=== PATIENT | female | born 1955 | race African-American/Black ===

== ENCOUNTER 2017-03-14 00:54 | Inpatient (IN) | payer BC, MEDICARE ==
[2017-03-14] VITALS (27 sets, daily range): BP systolic 98–182; BP diastolic 55–99; PULSE 59–104; RESP 17–23; TEMP 98–100.3; O2SAT 91–100
[~2017-03-14] VITALS: Ht 160 cm; Wt 87.0 kg
[~2017-03-14 00:54] MED LIST: AMLO5TAB2 PO; ASPI81TA11 PO; BENZ100 PO; KEPP750T PO; METF500T PO; METO25TA6 PO; ZITHTAB PO
[2017-03-14] MEDS ORDERED: LEVE500 PO (01:29)
[2017-03-14] MEDS ORDERED: PEPT262S PO (01:29)
[2017-03-14] MEDS ORDERED: CLON1TAB PO (01:29)
[2017-03-14] MEDS ORDERED: SODIUM CHLORIDE 0.9% FLUSH 10 ML FLUSH IVF PRN ×2 (01:30→02:45)
[2017-03-14 01:40] LABS: AUTOMATED NEUTROPHIL # 5.3 TH/MM3 (1.8-7.7); BASOPHIL # 0.1 TH/MM3 (0-0.2); BASOPHIL % 0.6 % (0.0-2.0); EOSINOPHIL # 0.4 TH/MM3 (0-0.4); HEMATOCRIT 41.8 % (35.0-46.0); LYMPH % 31.1 % (9.0-44.0); MEAN CELL VOLUME 81.1 FL (80.0-100.0); MEAN CORPUSCULAR HEMOGLOBIN 25.9 PG (27.0-34.0); MONO % 9.8 % (0.0-8.0); NEUT % 54.5 % (16.0-70.0); PLATELET COUNT 236 TH/MM3 (150-450); RED BLOOD COUNT 5.16 MIL/MM3 (4.00-5.30); RED CELL DISTRIBUTION WIDTH 13.6 % (11.6-17.2); WHITE BLOOD COUNT 9.7 TH/MM3 (4.0-11.0)
[2017-03-14] MEDS: SODIUM CHLOR 0.9% 1000 ML INJ 1,000 ML IV SCH ×5 (01:40→13:04)
[2017-03-14 01:41] LABS: HEMO FLAGS DIFF FINAL
[2017-03-14] MEDS: NITROGLYCERIN 0.4 MG SL 25 TABS/BTL SL PRN ×3 (01:41→01:52)
[2017-03-14 01:46] LABS: POTASSIUM 3.7 MEQ/L (3.5-5.1)
[2017-03-14 01:49] LABS: BICARBONATE 28.4 MEQ/L (21.0-32.0); MAGNESIUM 1.9 MG/DL (1.5-2.5)
[2017-03-14 01:50] LABS: APTT (PATIENT) 27.8 SEC (24.3-30.1); PROTHROMBIN TIME - PATIENT 10.7 SEC (9.8-11.6)
[2017-03-14 02:08] LABS: CKMB 23.2 NG/ML (0.5-3.6)
--- NOTE | 2017-03-14 02:08 | RADHPO ---
EXAM DATE/TIME: 03/14/2017 01:44 [place] COMPARISON: CHEST SINGLE AP, November 19, 2015, 1:29. INDICATIONS : Chest pain. MEDICAL HISTORY : None. SURGICAL HISTORY : None. ENCOUNTER: Initial ACUITY: 1 day PAIN SCORE: 7/10 LOCATION: Bilateral chest FINDINGS: A single view of the chest demonstrates the lungs to be symmetrically aerated without evidence of mas s, infiltrate or effusion. The cardiomediastinal contours are unremarkable. Osseous structures are intact. CONCLUSION: No acute disease. Abhishek Mckinney Jr., MD on March 14, 2017 at 2:06 Board Certified Radiologist. This report was verified electronically.
--- NOTE | 2017-03-14 02:13 | PD ---
HPI Chief Complaint: Chest Pain Time Seen by Provider: 02:07 Travel History International Travel<30 days: No Contact w/Intl Traveler<30days: No Traveled to known affect area: No History of Present Illness HPI 50 year-old female presents to the emergency department for complaint of chest pain times one day. Symptoms have not improved after taking a one dose of aspirin and one dose of Pepto-Bismol. Due to persistent pain patient presents now for further evaluation. Patient notes radiation of pain to left shoulder. Patient denies shortness of breath sweats nausea vomiting neck jaw back arm or abdominal pain. Patient has history of hypertension and borderline diabetes tobacco use. 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 Patient has family history of heart disease in her mother who is still living. Patient also has history of seizure disorder as well as pseudoseizure. Has been reports patient had a seizure 2 days ago but has had no seizures in the last 2 days subsequently. Patient rates her pain 9/10 in intensity. Patient is unable to identify exacerbating or alleviating factors. No prior history of chest pain. [facility] Past Medical History Narrative Medical Seizure, pseudoseizure, anxiety, hypertension, CVA, borderline diabetes, tobacco use, hysterectomy; nursing notes reviewed Anemia: Yes Anxiety: Yes Cerebrovascular Accident: Yes Diminished Hearing: No Hypertension: Yes Immunizations Current: Yes Seizures: Yes Tetanus Vaccination: Unknown Influenza Vaccination: No ?: Not : 4 Para: 4 Past Surgical History Gynecologic Surgery: Yes (HYSTERECTOMY) Hysterectomy: Yes (1998) Social History Alcohol Use: No Tobacco Use: Yes (1 ppd) Substance Use: No Allergies-Medications (Allergen,Severity, Reaction): Coded Allergies: No Known Allergies (Unverified , 03/14/17) Reported Meds & Prescriptions Reported Meds & Active Scripts Active Reported Clonazepam 1 Mg Tab 1 Mg PO DAILY Pepto-Bismol Liq (Bismuth Subsalicylate) 262 Mg/15 Ml Susp 30 Ml PO PRN Do not exceed 8 doses (240 mL or 16 tbsp) in 24 hours. Keppra (Levetiracetam) 500 Mg Tab 500 Mg PO BID Keppra (Levetiracetam) 500 Mg Tab 500 Mg PO BID Metoprolol Succinate ER 24 HR (Metoprolol Succinate) 25 Mg Tab 25 Mg PO DAILYAC Aspirin EC (Aspirin) 81 Mg Tabdr 81 Mg PO DAILY Review of Systems Except as stated in HPI: all other systems reviewed are Neg General / Constitutional: No: Fever, Chills HENT: No: Congestion Cardiovascular: Positive: Chest Pain or Discomfort, No: Diaphoresis, Edema Respiratory: No: Shortness of Breath Gastrointestinal: No: Nausea, Vomiting, Abdominal Pain Genitourinary: No: Flank Pain Musculoskeletal: No: Pain Skin: No Rash Neurologic: No: Weakness Psychiatric: Positive: Anxiety Hematologic/Lymphatic: No: Lymph Node Enlargement Physical Exam Narrative GENERAL: Well-nourished female in no acute distress no respiratory distress SKIN: Warm and dry. HEAD: Normocephalic. EYES: No scleral icterus. No injection or drainage. NECK: Supple, trachea midline. No JVD or lymphadenopathy. CARDIOVASCULAR: Regular rate and rhythm without murmurs, gallops, or rubs. RESPIRATORY: Breath sounds equal bilaterally. No accessory muscle use. GASTROINTESTINAL: Abdomen soft, non-tender, nondistended. MUSCULOSKELETAL: No cyanosis, or edema. Radial and dorsalis pedis pulses 2+ to palpation bilaterally. BACK: Nontender without obvious deformity. No CVA tenderness. Data Data Last Documented VS Vital Signs Date Time Temp Pulse Resp B/P Pulse Ox O2 Delivery O2 Flow Rate FiO2 03/14/17 02:40 88 18 162/77 100 Nasal Cannula 2 Orders Electrocardiogram (03/14/17:27) Basic Metabolic Panel (Bmp) (03/14/17:27) Ckmb (Isoenzyme) Profile (03/14/17:27) Complete Blood Count With Diff (03/14/17:27) Magnesium (Mg) (03/14/17:27) Prothrombin Time / Inr (Pt) (03/14/17:27) Act Partial Throm Time (Ptt) (03/14/17:27) Troponin I (03/14/17:27) Chest, Single Ap (03/14/17:27) Ecg Monitoring (03/14/17:27) Bilateral Bp Monitoring (03/14/17:27) Iv Access Insert/Monitor (03/14/17:27) Oximetry (03/14/17:27) Oxygen Administration (03/14/17:27) Sodium Chloride 0.9% Flush (Ns Flush) (4/22/17 01:30) Nitroglycerin Sl (Nitrostat Sl) (03/14/17 01:30) Sodium Chlor 0.9% 1000 Ml Inj (Ns 1000 M (03/14/17 01:30) CKMB (03/14/17 01:32) CKMB% (03/14/17 01:32) Ondansetron Inj (Zofran Inj) (03/14/17 02:15) Aspirin Chew (Aspirin Chew) (03/14/17 02:15) Heparin Infusion MARIO.Q1H (03/14/17 02:13) Heparin Inj (Heparin Inj) (03/14/17 02:15) Heparin Inj (Heparin Inj) (03/14/17 08:15) Heparin Inj (Heparin Inj) (03/14/17 08:15) Heparin-D5w Inj (Heparin-D5w Inj) (03/14/17 02:15) Cbc No Diff, Includes Plts (03/17/17 06:00) Act Partial Throm Time (Ptt) (03/14/17 09:13) Occult Blood (Hemoccult) Stool (03/14/17 02:13) Nitroglycerin 2% Oint (Nitroglycerin 2% (03/14/17 02:15) Sodium Chlorid 0.9% 500 Ml Inj (Ns 500 M (03/14/17 02:15) Heparin Infusion MARIO.Q1H (03/14/17 02:33) Heparin Inj (Heparin Inj) (03/14/17 08:45) Heparin Inj (Heparin Inj) (03/14/17 08:45) Heparin-D5w Inj (Heparin-D5w Inj) (03/14/17 02:45) Act Partial Throm Time (Ptt) (03/14/17 09:33) Admit Order (Ed Use Only) (03/14/17 ) ^ Saline Lock (03/14/17 02:39) Resp Oxygen Vipin C Titrat 1-4 L (03/14/17 ) Notify Dr: Other (03/14/17 02:39) Sodium Chloride 0.9% Flush (Ns Flush) (03/14/17 09:00) Sodium Chloride 0.9% Flush (Ns Flush) (03/14/17 02:45) Consult Cardiology (03/14/17 02:39) Labs Laboratory Tests Test 03/14/17 01:32 White Blood Count 9.7 TH/MM3 Red Blood Count 5.16 MIL/MM3 Hemoglobin 13.4 GM/DL Hematocrit 41.8 % Mean Corpuscular Volume 81.1 FL Mean Corpuscular Hemoglobin 25.9 PG Mean Corpuscular Hemoglobin 32.0 % Concent Red Cell Distribution Width 13.6 % Platelet Count 236 TH/MM3 Mean Platelet Volume 10.7 FL Neutrophils (%) (Auto) 54.5 % Lymphocytes (%) (Auto) 31.1 % Monocytes (%) (Auto) 9.8 % Eosinophils (%) (Auto) 4.0 % Basophils (%) (Auto) 0.6 % Neutrophils # (Auto) 5.3 TH/MM3 Lymphocytes # (Auto) 3.0 TH/MM3 Monocytes # (Auto) 0.9 TH/MM3 Eosinophils # (Auto) 0.4 TH/MM3 Basophils # (Auto) 0.1 TH/MM3 CBC Comment DIFF FINAL Differential Comment Prothrombin Time 10.7 SEC Prothromb Time International 1.0 RATIO Ratio Activated Partial 27.8 SEC Thromboplast Time Sodium Level 141 MEQ/L Potassium Level 3.7 MEQ/L Chloride Level 107 MEQ/L Carbon Dioxide Level 28.4 MEQ/L Anion Gap 6 MEQ/L Blood Urea Nitrogen 11 MG/DL Creatinine 0.85 MG/DL Estimat Glomerular Filtration 82 ML/MIN Rate Random Glucose 103 MG/DL Calcium Level 8.8 MG/DL Magnesium Level 1.9 MG/DL Total Creatine Kinase 309 U/L Creatine Kinase MB 23.2 NG/ML Creatine Kinase MB % 7.5 % Troponin I 4.47 NG/ML MDM Medical Decision Making Medical Screen Exam Complete: Yes Emergency Medical Condition: Yes Medical Record Reviewed: Yes Interpretation(s) EKG: Normal sinus rhythm rate [address] elevation or injury pattern change noted Last Impressions Chest X-Ray 03/14/17 0127 Signed Impressions: Service Date/Time: Tuesday, March 14, 2017 01:44 - CONCLUSION: No acute disease. Abhishek Mckinney Jr., MD CBC & BMP Diagram 03/14/17 01:32 Vital Signs Date Time Temp Pulse Resp B/P Pulse Ox O2 Delivery O2 Flow Rate FiO2 03/14/17 02:40 88 18 162/77 100 Nasal Cannula 2 03/14/17 02:20 99 Nasal Cannula 2.00 03/14/17 02:18 79 18 155/59 Nasal Cannula 2 03/14/17 02:00 80 18 128/69 100 Nasal Cannula 2 03/14/17 01:57 98/55 03/14/17 01:57 17 03/14/17 01:52 59 18 126/64 97 Room Air 03/14/17 01:45 88 149/77 03/14/17 01:38 84 133/90 142/79 03/14/17 01:10 22 Troponin I: 4.47, elevated; CK total: 309, elevated; MB percent: 7.5%, elevated Differential Diagnosis Chest pain, ACS, myocardial infarction, aortic dissection, atypical biliary colic, musculoskeletal pain Narrative Course Patient placed on energy assistant IV access obtained EKG performed which is sinus rhythm rate [address] elevation or injury pattern change noted; patient complains of chest pain 9/10 in intensity administered sublingual nitroglycerin along with aspirin patient reports she take an aspirin pressure to the emergency department. Maintenance IV fluids at 100 cc per hour at bedside Patient with hypotensive episode related to similar nitroglycerin with nausea; patient oncology navigator Zofran 4 mg IV and a bolus of normal saline 300 cc Patient's pain 2/10 intensity after one sublingual nitroglycerin shoulder pain is 0/10 in intensity patient denies any shortness of breath Lab call identifying patient elevated troponin I 4.47 At 2:10 AM patient and spouse informed that cardiac enzyme is elevated troponin I is elevated CK-MB percent is elevated consistent with myocardial infarction without ST segment elevation. Spouse identifies that patient's regional branch manager is Dr. Delong and he is not sure why the patient is followed by her regional branch manager other than she has a heart murmur and has not seen her recently. Patient does have history again of tobacco use hypertension and borderline diabetes but denies abnormal cholesterol. Patient has family history of cardiac disease that is not premature onset. Patient's had no bruising or bleeding. Patient did take aspirin prior to arrival to the emergency department. Patient with increase in pain from 2/10-4/10 therefore changed Nitropaste to nitroglycerin infusion At 4:25 pain has increased on nitroglycerin and repeat EKG performed for pain 8/ 10 in intensity which reveals no acute ST elevation or injury pattern or ectopy ; patient given additional dose of morphine and nitroglycerin infusion increased to 40 mics per minute. No nausea no vomiting no referred pain pain as retrosternal. Also patient's heart rate remains 90 with Toprol 5 mg IV administered. Patient reporting improvement with decreasing pain. Critical Care Narrative Aggregate critical care time was 45 minutes. Time to perform other separately billable procedures was not included in the critical care time. My time did not include minutes spent treating any other patients simultaneously or on activities that did not directly contribute to the patient's treatment. The services I provided to this patient were to treat and/or prevent clinically significant deterioration that could result in: Arrhythmia, cardiac shock, cardiac arrest, I provided critical care services requiring my management, as noted below: Chart data review, documentation time, medication orders and management, vital sign assessments/reviewing monitor data, ordering and reviewing lab tests, ordering and interpreting/reviewing x-rays and diagnostic studies, care of the patient and discussion of the patient with the admitting physicians. Physician Communication Physician Communication call placed to regional branch manager --Dr Ponce for Dr Delong; call placed to [facility] Dr Montanez for admission to [facility]; call placed to regional branch manager --notified recurrent increasing pain aware no beds and going ED to ED to get to [facility] --regional branch manager Dr Ponce wants to be notified upon patient arrival to [facility] ED if chest pain to take to laborer electroplating but not directly to laborer electroplating from [facility] ED to laborer electroplating; ED MD Dr Ponce notified of patient and cardiologists request Diagnosis Primary Impression: Non-ST elevated myocardial infarction Additional Impression: Seizure disorder Admitting Information Admitting Physician Requests: Admit Sangeeta Simmons MD Mar 14, 2017 02:13
[2017-03-14] MEDS ORDERED: SODIUM CHLORID 0.9% 500 ML INJ 500 ML IV ONE (02:15)
[2017-03-14] MEDS ORDERED: ONDANSETRON HCL 4 MG/2 ML VIAL IV PUSH ONE (02:15)
[2017-03-14] MEDS ORDERED: HEPARIN SODIUM - IV 10,000 UNITS/10 ML VIAL IV ONE (02:15)
[2017-03-14] MEDS ORDERED: NITROGLYCERIN 2% OINT 1 GM PACKET TOPICAL ONE (02:15)
[2017-03-14] MEDS ORDERED: ASPIRIN 81 MG CHEW TAB CHEW ONE (02:15)
[2017-03-14] MEDS ORDERED: HEPARIN-D5W INJ 250 ML IV SCH ×2 (02:15→02:45)
[2017-03-14] MEDS ORDERED: ACETAMINOPHEN/HYDROcodone 325 MG/5 MG TAB PO PRN (02:45)
[2017-03-14] MEDS ORDERED: BISACODYL 10 MG SUPP RECTAL PRN (02:45)
[2017-03-14] MEDS ORDERED: ONDANSETRON HCL 4 MG/2 ML VIAL IVP PRN (02:45)
[2017-03-14] MEDS ORDERED: SODIUM CHLORIDE 0.9% FLUSH 10 ML FLUSH IV FLUSH PRN (02:45)
[2017-03-14] MEDS ORDERED: NITROGLYCERIN 2% OINT 1 GM PACKET TOPICAL PRN (02:45)
[2017-03-14] MEDS ORDERED: MISCELLANEOUS NURSING INFORMATION XX SCH (03:15)
[2017-03-14] MEDS ORDERED: CHLORHEXIDINE GLUCONATE 2 % 1 PACK (2 CLOTHS) TOP PRN (03:15)
[2017-03-14] MEDS ORDERED: MORPHINE SULFATE 4 MG/ML INJ IV PUSH ONE ×2 (03:30→04:30)
[2017-03-14] MEDS ORDERED: NITROGLYCERIN-DEXTROSE INJ 250 ML IV SCH (03:30)
[2017-03-14] MEDS ORDERED: CHLORHEXIDINE GLUCONATE 2 % 1 PACK (2 CLOTHS) TOP SCH (04:00)
[2017-03-14] MEDS ORDERED: METOPROLOL TARTRATE 5 MG/5 ML VIAL IV PUSH ONE (04:30)
[2017-03-14] MEDS ORDERED: HYDROmorphone HCL PF 1 MG/ML VIAL IV PUSH ONE (05:00)
[2017-03-14] MEDS: MORPHINE SULFATE 4 MG/ML INJ IV PRN ×2 (06:50→13:33)
[2017-03-14] MEDS ORDERED: SODIUM CHLOR 0.9% 1000 ML INJ 1,000 ML IV SCH (07:57)
[2017-03-14] MEDS ORDERED: METOPROLOL SUCCINATE 25 MG EXTENDED RELEASE TAB PO SCH (08:00)
[2017-03-14] MEDS ORDERED: HEPARIN SODIUM - IV 10,000 UNITS/10 ML VIAL IV PRN ×4 (08:15→08:45)
[2017-03-14] MEDS ORDERED: HEPARIN-NS/PF INJ 500 ML ONE (08:30)
[2017-03-14] MEDS ORDERED: VERAPAMIL HCL 5 MG/2 ML VIAL ONE ×2 (08:35→09:33)
[2017-03-14] MEDS ORDERED: HEPARIN SODIUM - IV 10,000 UNITS/10 ML VIAL ONE (08:35)
[2017-03-14] MEDS ORDERED: MIDAZOLAM HCL 2 MG/2 ML VIAL ONE (08:54)
[2017-03-14] MEDS ORDERED: SODIUM CHLORIDE 0.9% FLUSH 10 ML FLUSH IV FLUSH SCH (09:00)
[2017-03-14] MEDS: SODIUM CHLORIDE 0.9% FLUSH 10 ML FLUSH IV FLUSH SCH ×2 (09:00→21:02)
[2017-03-14] MEDS: clonazePAM 1 MG TAB PO SCH (09:00)
[2017-03-14] MEDS ORDERED: IOHEXOL 350 MG/ML 100 ML BTL (for Cath Lab) OTHER ONE (09:45)
[2017-03-14] MEDS ORDERED: MISC INFORMATION XX ONE (10:00)
--- NOTE | 2017-03-14 11:02 | MB ---
cc: GREGORIO WADE M.D. DATE OF CONSULTATION: 03/14/2017 REASON FOR CONSULTATION: Evaluation of chest pain and elevated troponin. HISTORY OF PRESENT ILLNESS: Mrs. Toscano is a 50-year-old -Maced[place] female transferred from [facility] to [facility] with an acute non STEMI. She has had no prior history of coronary disease, her said she had a heart catheterization. The catheterization was done 15 years ago up in [place] and apparently she had no blockage. The patient has a history of hypertension, she smokes, Her mother has hypertension. She apparently had a previous transient ischemic attack before. Her major prior history is that she has had prior seizure or pseudoseizures, this has been worked up at other hospitals. There is not alot of hospital records here. She sees a doctor in [place] named Dr. Gama. The patient describes having chest pain a couple of days ago and then last night unrelenting chest pain described as a substernal chest pressure with radiation to left shoulder is ongoing. She is now here in the ER at [facility] and discomfort in her chest is ongoing. I have now called a STEMI alert and am waiting for the team to come in. PAST MEDICAL HISTORY: 1. Includes pseudoseizure 2. anxiety 3. hypertension 4. previous Transient ischemic attack. 5. Borderline diabetes. 6. Smoker. 7. Status post hysterectomy. PAST SURGICAL HISTORY Notable for previous hysterectomy. SOCIAL HISTORY She is . Smokes one-pack a day. No alcohol use. ALLERGIES None. MEDICATIONS PRIOR TO ADMISSION Include 1. Clonazepam 1 mg daily 2. Pepto-Bismol 3. Keppra 500 mg p.o. twice a day. 4. Metoprolol succinate 25 mg daily. 5. Aspirin 81 mg daily. REVIEW OF SYSTEMS No bleeding. Her remaining review of systems negative. PHYSICAL EXAMINATION: IN GENERAL: The physical exam reveals an obese pleasant -Macedonian female. She appears anxious. He makes periodic clonic movements, leg spasms but is alert the whole time. VITAL SIGNS: The vital signs are charted. HEAD, EYES, EARS, NOSE, AND THROAT: Exam unremarkable. NECK: The neck is negative for JVD or bruits. CHEST: The chest is clear to auscultation. CARDIOVASCULAR SYSTEM: Exam S1-S2 regular rate and rhythm and no murmurs, gallops. ABDOMEN: The abdomen is soft, nontender. EXTREMITIES: No clubbing, cyanosis or edema. RADIOLOGIC: Electrocardiogram shows sinus rhythm, there are no acute ST-T wave changes, there is a very nonspecific change inferiorly. There is a fraction of a millimeter elevation and one in aVL but nondiagnostic at this point. LABORATORY FINDINGS: Her lab work; Hematocrit is 41.8. White blood cell count is normal, platelet count is normal. CPK is 309 with a 7.5% MB fraction and troponin is elevated 4.47, creatinine 0.85. RADIOLOGIC: Chest x-ray interpreted as no acute disease. IMPRESSION 61-year-old woman smoker with hypertension presenting with an acute non-ST segment elevation MT. Her chest discomfort is ongoing. PLAN For emergency cath, possible intervention cath maybe difficult because of her inability to laid still, she makes these periodic jerking motions. I plan to go radial rather than femoral to reduce risk of bleeding risks were explained to the patient and includes trocar attack, bleeding, etc. informed consents been obtained. I have spoken to the , I have also have received a phone call from the daughter who is apparently an TECHNICAL MAINTENANCE TECHNICIAN physician as well and I explained the situation to her as well. Further therapy be determined. MD ISAIAH Castillo/levi /8:04 AM /10:28 AM
--- NOTE | 2017-03-14 11:22 | MA ---
cc: GREGORIO WADE M.D. DATE: 03/14/2017 PROCEDURE PERFORMED: 1. Right radial artery access. 2. Coronary angiography. 3. Left heart catheterization. 4. Left ventriculography. 5. Coronary angiography. BRIEF HISTORY: Fer Toscano is a 61-year-old smoker with hypertension who came into the hospital with prolonged chest discomfort and elevation of her troponin. She described it as a heaviness in her chest radiating to her left arm. DESCRIPTION OF THE PROCEDURE IN DETAIL: The patient was brought to cardiac laboratory equipment cleaner under emergency conditions. The groin and right wrist were prepped and draped IN sterile fashion. using 1% lidocaine for local anesthesia a Terumo slender sheath was inserted in the right radial artery without difficulty. A standard cocktail was administered of 2500 units heparin, 2.5 milligrams of verapamil and 20 micrograms of nitroglycerin but then tried to cannulate the left coronary artery with a left 3.5 Senia and was not successful in part because her aortic root is short. Angiography of the right coronary artery was performed using a right 5 Senia catheter. I tried a 4 Beninese left one Amplatz catheter unsuccessfully and then just a 5-Beninese left 2 Amplatz catheter and obtained selective angiograms of the left coronary artery. The catheter was removed gently without trauma to the left main. An angled pigtail catheter was then used to measure left ventricular pressure followed by left ventriculography and then a pullback. The pigtail catheter was then removed over a wire. The sheath was in the process of being removed with a Terumo band placed. There were no complications. Of note, she did have chest pain during the procedure but her coronary arteries are wide-open FINDINGS: 1. HEMODYNAMICS: Left ventricular pressure is 136/22 with an end diastolic pressure of 28. Aortic pressure is 147/80 with a mean of 111. There was no gradient during pullback from the left ventricle to the aorta. 2. LEFT VENTRICULOGRAPHY: The left ventriculography reveals a hypercontractile left ventricle. Ejection fraction appears to be about 80%. 3. CORONARY ANGIOGRAPHY: Coronary circulation is right dominant. Her right coronary artery is large, dominant and normal-appearing. Her left coronary artery shows a large normal-appearing left main. The left anterior descending artery reaches the apex and it is normal. There is no bridging or stenoses. The ramus intermediate branch is normal. The circumflex artery appears normal. CONCLUSIONS: 1. Elevated left ventricular end diastolic pressure. 2. Above normal left ventricular ejection fraction. 3. Normal coronary arteries. RECOMMENDATIONS: The explanation for elevated troponin now is unclear. Her saturation is normal and she does not have pleuritic pain. It does not look typical of pulmonary embolism. She does smoke and she is at an increased risk of coronary spasm. She was on IV nitrates at the time her cath, so cannot exclude the possibility of spasm although there is no narrowing seen on the cath and she did have chest pain during the cath. Will get a 2-D echo Doppler study, might give some consideration to a pulmonary CTA but the clinical picture does not really look like a pulmonary embolism. Further therapy to be determined. MD ISAIAH Castillo/SHRUTHI /9:51 AM /11:12 AM
--- NOTE | 2017-03-14 11:49 | EC ---
Study Study Date:03/14/2017 STUDY CONCLUSIONS SUMMARY - Left ventricle: The cavity size was normal. Wall thickness was increased in a pattern of moderate LVH. Systolic function was normal. The estimated ejection fraction was 80%, in the range of 75% to 80%. Wall motion was normal; there were no regional wall motion abnormalities. - Mitral valve: Mildly calcified annulus. If LV function is below 40, please consider prescribing an ACEI or ARB or document rationale for non-use. PROCEDURE DATA STUDY STATUS: Elective. Procedure: Transthoracic echocardiography. Image quality was good. Scanning was performed from the parasternal, apical, and subcostal acoustic windows. Study completion: The patient tolerated the procedure well. Transthoracic echocardiography. M-mode, complete 2D, complete spectral Doppler, and color Doppler. Patient status: Inpatient. CARDIAC ANATOMY LEFT VENTRICLE: The cavity size was normal. Wall thickness was increased in a pattern of moderate LVH. Systolic function was normal. The estimated ejection fraction was 80%, in the range of 75% to 80%. Wall motion was normal; there were no regional wall motion abnormalities. AORTIC VALVE: Trileaflet; normal thickness leaflets. Doppler: Transvalvular velocity was within the normal range. There was no stenosis. No regurgitation. Peak gradient: 14mm Hg (S). AORTA: Aortic root: The aortic root was normal in size. MITRAL VALVE: Mildly calcified annulus. Doppler: Transvalvular velocity was within the normal range. There was no evidence for stenosis. Trace regurgitation. Valve area by pressure half-time: 3.79cm^2. Mean gradient: 8mm Hg (D). Peak gradient: 19mm Hg (D). LEFT ATRIUM: The atrium was normal in size. RIGHT VENTRICLE: The cavity size was normal. Wall thickness was normal. PULMONIC VALVE: Doppler: Transvalvular velocity was within the normal range. There was no evidence for stenosis. Trace regurgitation. TRICUSPID VALVE: Structurally normal valve. Doppler: Transvalvular velocity was within the normal range. No regurgitation. PULMONARY ARTERY: The main pulmonary artery was normal-sized. Systolic pressure was within the normal range. RIGHT ATRIUM: The atrium was normal in size. PERICARDIUM: There was no pericardial effusion. SYSTEMIC VEINS: Inferior vena cava: The vessel was normal in size. BASIC MEASUREMENTS ADULT Normal Left ventricle LV internal dimension, ED, chordal level, *42.1 mm 43-52 PLAX LV internal dimension, ES, chordal level, 30.1 mm 23-38 PLAX Fractional shortening, chordal level, PLAX *29 % >29 LV posterior wall thickness, ED 12 mm IVS/LVPW ratio, ED 1 <1.3 Ventricular septum Septal thickness, ED 12 mm Aortic valve Leaflet separation 18 mm 15-26 Left atrium Anterior-posterior dimension 37 mm Right ventricle RV internal dimension, ED, PLAX *17.5 mm 19-38 BASIC MEASUREMENTS ADULT Normal Aortic valve Leaflet separation 18 mm 15-26 Aorta Root diameter, ED 27 mm 20-37 DOPPLER MEASUREMENTS ADULT Normal Aortic valve Peak velocity, S 187 cm/s VTI, S 51.2 cm Peak gradient, S 14 mm Hg Mitral valve Peak E-wave velocity 108 cm/s Peak A-wave velocity 138 cm/s Mean velocity, D 127 cm/s Pressure half-time 58 ms Mean gradient, D 8 mm Hg Peak gradient, D 19 mm Hg Peak E/A ratio 0.8 Valve area, pressure half-time 3.79 cm^2 Tricuspid valve Regurgitant peak velocity 136 cm/s Peak RV-RA gradient, S 7 mm Hg Maximal regurgitant velocity 136 cm/s LEGEND: Mean values are shown as u=mean value. Asterisk (*) sparrow values outside specified normal range. Prepared and signed by Alessandro So [id number]
--- NOTE | 2017-03-14 12:40 | HHI.HP ---
[facility] Erum Flynn MD Admission Diagnosis NSTEMI Diagnoses: (1) Elevated troponin Diagnosis: Principal (2) Chest pain Diagnosis: Principal Chief Complaint: chest pain Travel History International Travel<30 Days: No Contact w/Intl Traveler <30 Da: No Traveled to Known Affected Are: No History of Present Illness patient is a 61 y/o female with history of hypertension,prediabetes and seizure disorder who presented to ER with chest pain. she says that the pain started yesterday when she was walking. pain was midsternal with no radiation. it was not associated with nausea or vomiting. although she had some diaphoresis. currently the pain is minimal to mild - improved with nitro- she doesn't recall any prior chest pain in the past. she was evaluated by cardiology and underwent cardiac catheterization. Review of Systems Constitutional: COMPLAINS OF: Diaphoretic episodes, DENIES: Fever, Weight loss , Chills, Night Sweats Eyes: DENIES: Blurred vision, Diplopia, Vision loss, Double Vision Ears, nose, mouth, throat: DENIES: Tinnitus, Vertigo, Throat pain, Epistaxis Respiratory: DENIES: Apneas, Cough, Snoring, Wheezing, Hemoptysis, Sputum production, Shortness of breath Cardiovascular: COMPLAINS OF: Chest pain, DENIES: Palpitations, Syncope, Dyspnea on Exertion, PND, Lower Extremity Edema, Orthopnea, Claudication Gastrointestinal: DENIES: Abdominal pain, Black stools, Bloody stools, Constipation, Diarrhea, Nausea, Vomiting, Difficulty Swallowing, Anorexia Genitourinary: DENIES: Urinary frequency, Urgency, Hematuria, Dysuria Musculoskeletal: DENIES: Joint pain, Muscle aches, Stiffness, Joint Swelling Integumentary: DENIES: Rash Neurologic: DENIES: Abnormal gait, Headache, Localized weakness, Paresthesias, Seizures, Speech Problems, Tremor, Poor Balance Psychiatric: DENIES: Anxiety, Confusion, Mood changes, Depression, Hallucinations, Agitation, Suicidal Ideation, Homicidal Ideation, Delusions Past Family Social History Past Medical History hypertension prediabetes seizure disorder Past Surgical History hysterectomy Reported Medications Clonazepam 1 Mg Tab 1 Mg PO DAILY Pepto-Bismol Liq (Bismuth Subsalicylate) 262 Mg/15 Ml Susp 30 Ml PO PRN Do not exceed 8 doses (240 mL or 16 tbsp) in 24 hours. Keppra (Levetiracetam) 500 Mg Tab 500 Mg PO BID Keppra (Levetiracetam) 500 Mg Tab 500 Mg PO BID Metoprolol Succinate ER 24 HR (Metoprolol Succinate) 25 Mg Tab 25 Mg PO DAILYAC Aspirin EC (Aspirin) 81 Mg Tabdr 81 Mg PO DAILY Allergies: Coded Allergies: No Known Allergies (Unverified , 03/14/17) Active Ordered Medications Current Medications Sodium Chloride (NS Flush) 2 ml UNSCH PRN IVF FLUSH AFTER USING IV ACCESS; Start 03/14/17 at 01:30; Stop 03/14/17 at 02:42; Status DC Nitroglycerin 0.4 mg 0.4 mg Q5M PRN SL CHEST PAIN Last administered on 01:52; Start 03/14/17 at 01:30 Sodium Chloride (NS 1000 ml Inj) 1,000 ml @ 100 mls/hr Q10H IV Last administered on 03/14/17 02:26; Start 03/14/17 at 01:30; Stop 03/14/17 at 02:49 ; Status DC Ondansetron HCl (Zofran Inj) 4 mg ONCE ONCE IV PUSH Last administered on 02:06; Start 03/14/17 at 02:15; Stop 03/14/17 at 02:16; Status DC Aspirin (Aspirin Chew) 162 mg ONCE ONCE CHEW Last administered on 03/14/17 02 :20; Start 03/14/17 at 02:15; Stop 03/14/17 at 02:16; Status DC Heparin Sodium (Porcine) (Heparin Inj) 7,000 units ONCE ONCE IV Last administered on 03/14/17 02:23; Start 03/14/17 at 02:15; Stop 03/14/17 at 02:18 ; Status DC Heparin Sodium (Porcine) (Heparin Inj) 5,000 units UNSCH PRN IV APTT LESS THAN 25; Start 03/14/17 at 08:15; Stop 03/14/17 at 08:15; Status DC Heparin Sodium (Porcine) 2500 units 2,500 units UNSCH PRN IV APTT 25 TO 39; Start 03/14/17 at 08:15; Stop 03/14/17 at 08:15; Status DC Heparin Sodium/ Dextrose (Heparin-D5W Inj) 250 ml @ 0 mls/hr TITRATE IV ; Start 03/14/17 at 02:15; Stop 03/14/17 at 02:39; Status DC Nitroglycerin 0.5 inch 0.5 inch ONCE ONCE TOPICAL Last administered on 02:22; Start 03/14/17 at 02:15; Stop 03/14/17 at 02:18; Status DC Sodium Chloride (NS 500 ml Inj) 500 ml @ 500 mls/hr BOLUS ONCE IV Last administered on 03/14/17 02:48; Start 03/14/17 at 02:15; Stop 03/14/17 at 03:14 ; Status DC Heparin Sodium (Porcine) (Heparin Inj) 5,000 units UNSCH PRN IV APTT LESS THAN 25; Start 03/14/17 at 08:45; Stop 03/14/17 at 10:15; Status DC Heparin Sodium (Porcine) 2500 units 2,500 units UNSCH PRN IV APTT 25 TO 39; Start 03/14/17 at 08:45; Stop 03/14/17 at 10:15; Status DC Heparin Sodium/ Dextrose (Heparin-D5W Inj) 250 ml @ 0 mls/hr TITRATE IV Last administered on 03/14/17 02:56; Start 03/14/17 at 02:45; Stop 03/14/17 at 10:15 ; Status DC Sodium Chloride (NS Flush) 2 ml BID IV FLUSH ; Start 03/14/17 at 09:00; Stop at 09:00; Status DC Sodium Chloride 2 ml 2 ml UNSCH PRN IVF FLUSH AFTER USING IV ACCESS; Start at 02:45; Stop 03/14/17 at 02:49; Status DC Sodium Chloride (NS 1000 ml Inj) 1,000 ml @ 100 mls/hr Q10H IV Last administered on 03/14/17 02:58; Start 03/14/17 at 02:37 Sodium Chloride (NS Flush) 2 ml UNSCH PRN IV FLUSH FLUSH AFTER USING IV ACCESS ; Start 03/14/17 at 02:45 Sodium Chloride (NS Flush) 2 ml BID IV FLUSH ; Start 03/14/17 at 09:00 Ondansetron HCl (Zofran Inj) 4 mg Q6H PRN IVP NAUSEA OR VOMITING; Start at 02:45 Bisacodyl (Dulcolax Supp) 10 mg DAILY PRN RECTAL CONSTIPATION; Start 03/14/17 at 02:45 Acetaminophen (Tylenol) 650 mg Q6H PRN PO FEVER/PAIN SCALE 1 TO 2; Start at 02:45 Acetaminophen/ Hydrocodone Bitart ([place] 5-325 Mg) 1 tab Q4H PRN PO PAIN SCALE 3 TO 5; Start 03/14/17 at 02:45 Morphine Sulfate (Morphine Inj) 2 mg Q3H PRN IV Pain 6-10 Last administered on 03/14/17 06:50; Start 03/14/17 at 02:45 Nitroglycerin (Nitroglycerin 2% Oint) 0.5 inch Q6HR PRN TOPICAL CHEST PAIN; Start 03/14/17 at 02:45; Stop 03/14/17 at 03:29; Status DC Clonazepam (KlonoPIN) 1 mg DAILY PO ; Start 03/14/17 at 09:00 Levetriacetam (Keppra) 500 mg BID PO ; Start 03/14/17 at 09:00 Metoprolol Succinate (Toprol Xl) 25 mg DAILYAC PO ; Start 03/14/17 at 08:00 Miscellaneous Information 1 Q361D XX ; Start 03/14/17 at 03:15 Chlorhexidine Gluconate (Chlorhexidine 2% Cloth) 3 pack Taper DAILY@04 TOP ; Start 03/14/17 at 04:00; Stop 03/10/18 at 03:59 Chlorhexidine Gluconate 3 pack 3 pack UNSCH PRN TOP HYGIENIC CARE; Start at 03:15 Nitroglycerin/ Dextrose (Nitroglycerin-Dextrose Inj) 250 ml @ 0 mls/hr TITRATE IV Last administered on 03/14/17 03:58; Start 03/14/17 at 03:30 Morphine Sulfate (Morphine Inj) 2 mg ONCE ONCE IV PUSH Last administered on 03:51; Start 03/14/17 at 03:30; Stop 03/14/17 at 03:31; Status DC Morphine Sulfate (Morphine Inj) 4 mg ONCE ONCE IV PUSH Last administered on 04:24; Start 03/14/17 at 04:30; Stop 03/14/17 at 04:31; Status DC Metoprolol Tartrate (Lopressor Inj) 5 mg ONCE ONCE IV PUSH Last administered on 03/14/17 04:38; Start 03/14/17 at 04:30; Stop 03/14/17 at 04:31; Status DC Hydromorphone HCl 0.5 mg 0.5 mg ONCE ONCE IV PUSH Last administered on 05:00; Start 03/14/17 at 05:00; Stop 03/14/17 at 05:01; Status DC Sodium Chloride 1,000 ml @ 100 mls/hr Q10H IV ; Start 03/14/17 at 07:57; Stop 03/14/17 at 10:18; Status DC Heparin Sodium/ Sodium Chloride (Heparin-NS/Pf Inj) 500 ml @ As Directed STK- MED ONCE .ROUTE ; Start 03/14/17 at 08:30; Stop 03/14/17 at 08:31; Status DC Verapamil HCl (Isoptin Inj) 5 mg STK-MED ONCE .ROUTE Last administered on 08:35; Start 03/14/17 at 08:35; Stop 03/14/17 at 08:36; Status DC Heparin Sodium (Porcine) (Heparin Inj) 10,000 units STK-MED ONCE .ROUTE Last administered on 03/14/17 08:35; Start 03/14/17 at 08:35; Stop 03/14/17 at 08:36 ; Status DC Midazolam HCl (Versed Inj) 2 mg STK-MED ONCE .ROUTE Last administered on 08:54; Start 03/14/17 at 08:54; Stop 03/14/17 at 08:55; Status DC Fentanyl Citrate (fentaNYL INJ) 100 mcg STK-MED ONCE .ROUTE Last administered on 03/14/17 08:54; Start 03/14/17 at 08:54; Stop 03/14/17 at 08:55; Status DC Verapamil HCl (Isoptin Inj) 5 mg STK-MED ONCE .ROUTE ; Start 03/14/17 at 09:33; Stop 03/14/17 at 09:34; Status DC Miscellaneous Information 1 1 ONCE ONCE XX ; Start 03/14/17 at 10:00; Stop at 10:14; Status DC Sodium Chloride (NS 1000 ml Inj) 1,000 ml @ 100 mls/hr Q10H IV ; Start at 11:00 Family History heart condition in mother. Social History smokes a pack a day- doesn't drink. Physical Exam Vital Signs Vital Signs Date Time Temp Pulse Resp B/P Pulse Ox O2 Delivery O2 Flow Rate FiO2 03/14/17 08:29 97 20 147/76 97 Nasal Cannula 2 03/14/17 07:27 18 03/14/17 06:10 96 23 159/68 96 Nasal Cannula 2 03/14/17 05:30 18 03/14/17 04:54 98.0 91 18 157/86 100 Nasal Cannula 2 03/14/17 04:44 88 22 142/76 99 Nasal Cannula 2 03/14/17 04:39 92 20 161/84 97 Nasal Cannula 2 03/14/17 04:30 18 03/14/17 04:24 104 18 180/96 97 Nasal Cannula 2 03/14/17 04:16 87 18 164/93 03/14/17 04:12 93 18 182/89 03/14/17 04:06 91 18 164/85 03/14/17 04:06 91 18 164/85 03/14/17 04:03 18 03/14/17 04:01 95 18 166/97 03/14/17 03:59 18 03/14/17 03:10 90 17 161/84 99 03/14/17 02:40 88 18 162/77 100 Nasal Cannula 2 03/14/17 02:20 99 Nasal Cannula 2.00 03/14/17 02:18 79 18 155/59 Nasal Cannula 2 03/14/17 02:00 80 18 128/69 100 Nasal Cannula 2 03/14/17 01:57 98/55 03/14/17 01:57 17 03/14/17 01:52 59 18 126/64 97 Room Air 03/14/17 01:45 88 149/77 03/14/17 01:38 84 133/90 142/79 03/14/17 01:10 22 Physical Exam GENERAL: This is a well-nourished, well-developed patient, in no apparent distress. SKIN: No rashes, ecchymoses or lesions. Cool and dry. HEAD: Atraumatic. Normocephalic. No temporal or scalp tenderness. EYES: Pupils equal round and reactive. Extraocular motions intact. No scleral icterus. No injection or drainage. ENT: Nose without bleeding, purulent drainage or septal hematoma. Throat without erythema, tonsillar hypertrophy or exudate. Uvula midline. Airway patent. NECK: Trachea midline. No JVD or lymphadenopathy. Supple, nontender, no meningeal signs. CARDIOVASCULAR: Regular rate and rhythm without murmurs, gallops, or rubs. RESPIRATORY: Clear to auscultation. Breath sounds equal bilaterally. No wheezes , rales, or rhonchi. GASTROINTESTINAL: Abdomen soft, non-tender, nondistended. No hepato-splenomegaly , or palpable masses. No guarding. MUSCULOSKELETAL: Extremities without clubbing, cyanosis, or edema. No joint tenderness, effusion, or edema noted. No calf tenderness. Negative Homans sign bilaterally. NEUROLOGICAL: Awake and alert. Cranial nerves II through XII intact. Motor and sensory grossly within normal limits. Five out of 5 muscle strength in all muscle groups. Normal speech. Laboratory Laboratory Tests Test 03/14/17 01:32 White Blood Count 9.7 Red Blood Count 5.16 Hemoglobin 13.4 Hematocrit 41.8 Mean Corpuscular Volume 81.1 Mean Corpuscular Hemoglobin 25.9 Mean Corpuscular Hemoglobin 32.0 Concent Red Cell Distribution Width 13.6 Platelet Count 236 Mean Platelet Volume 10.7 Neutrophils (%) (Auto) 54.5 Lymphocytes (%) (Auto) 31.1 Monocytes (%) (Auto) 9.8 Eosinophils (%) (Auto) 4.0 Basophils (%) (Auto) 0.6 Neutrophils # (Auto) 5.3 Lymphocytes # (Auto) 3.0 Monocytes # (Auto) 0.9 Eosinophils # (Auto) 0.4 Basophils # (Auto) 0.1 CBC Comment DIFF FINAL Differential Comment Prothrombin Time 10.7 Prothromb Time International 1.0 Ratio Activated Partial 27.8 Thromboplast Time Sodium Level 141 Potassium Level 3.7 Chloride Level 107 Carbon Dioxide Level 28.4 Anion Gap 6 Blood Urea Nitrogen 11 Creatinine 0.85 Estimat Glomerular Filtration 82 Rate Random Glucose 103 Calcium Level 8.8 Magnesium Level 1.9 Total Creatine Kinase 309 Creatine Kinase MB 23.2 Creatine Kinase MB % 7.5 Troponin I 4.47 Result Diagram: 03/14/1713103/14/17131 Imaging Last Impressions Chest X-Ray 03/14/17126 Signed Impressions: Service Date/Time: Tuesday, March 14, 2017 01:44 - CONCLUSION: No acute disease. Abhishek Mckinney Jr., MD EKG; sinus rhythm with right atrial abnormality Assessment and Plan Assessment and Plan A/P - chest pain with elevated troponin- cardiology consult appreciated negative cardiac catheterization with normal coronary arteries echo with EF 75% and LVH continue BB and nitro as needed- keep on oxygen to keep O2 sat > 90% will check ABG and d-dimer- will consider V/Q scan ( patient already received contrast during heart cath)- pending the result of the studies. -hypertension/ seizure disorder; resume home meds Discussed Condition With the patient and her . RN. Physician Certification 2 Midnight Certification Type: Admission for Inpatient Services Order for Inpatient Services The services are ordered in accordance with Medicare regulations or non- Medicare payer requirements, as applicable. In the case of services not specified as inpatient-only, they are appropriately provided as inpatient services in accordance with the 2-midnight benchmark. Estimated LOS (days): 2 days is the estimated time the patient will need to remain in the hospital, assuming treatment plan goals are met and no additional complications. Post-Hospital Plan: Home Problem Qualifiers (1) Chest pain: Qualified Code: R07.9 - Chest pain, unspecified type Michael Leigh MD Mar 14, 2017 12:39
[2017-03-14] MEDS: levETIRAcetam 500 MG TAB PO SCH ×2 (12:59→20:40)
--- NOTE | 2017-03-14 13:43 | EKG ---
Date Performed: 03/14/2017 Time Performed: 01:11:24 PTAGE: 61 years EKG: Sinus rhythm . Possible right atrial abnormality Borderline ECG Compared to prior tracing no significant change DOCTOR: Wes Jeff Interpretating Date/Time 03/14/2017 13:38:19
--- NOTE | 2017-03-14 13:43 | EKG ---
Date Performed: 03/14/2017 Time Performed: 04:17:04 PTAGE: 61 years EKG: Sinus rhythm . Possible right atrial abnormality Borderline ECG Compared to prior tracing no significant change PREVIOUS TRACING : 11/19/2015 01.22 DOCTOR: Wes Jeff Interpretating Date/Time 03/14/2017 13:38:30
[2017-03-14] MEDS: METOPROLOL TARTRATE 25 MG TAB PO SCH ×2 (18:48→22:00)
[2017-03-14] MEDS: VERAPAMIL HCL 40 MG TAB PO SCH ×2 (18:48→22:00)
[2017-03-14] MEDS: ACETAMINOPHEN 325 MG TAB PO PRN (19:31)
[2017-03-15] VITALS (12 sets, daily range): BP systolic 126–150; BP diastolic 72–85; PULSE 60–82; RESP 18–20; TEMP 98.1–99.1; O2SAT 92–97
[2017-03-15] MEDS: VERAPAMIL HCL 40 MG TAB PO SCH ×2 (04:27→13:53)
[2017-03-15] MEDS: METOPROLOL TARTRATE 25 MG TAB PO SCH ×2 (04:27→13:53)
[2017-03-15] MEDS: ACETAMINOPHEN 325 MG TAB PO PRN ×2 (04:31→12:13)
[2017-03-15 06:40] LABS: AUTOMATED NEUTROPHIL # 8.2 TH/MM3 (1.8-7.7); BASOPHIL % 0.4 % (0.0-2.0); EOSINOPHIL # 0.1 TH/MM3 (0-0.4); EOSINOPHIL % 1.1 % (0.0-4.0); HEMATOCRIT 35.6 % (35.0-46.0); HEMO FLAGS DIFF FINAL; LYMPH % 19.2 % (9.0-44.0); LYMPHOCYTE # 2.4 TH/MM3 (1.0-4.8); MEAN CORPUSCULAR HEMOGLOBIN 26.4 PG (27.0-34.0); MONO % 13.1 % (0.0-8.0); NEUT % 66.2 % (16.0-70.0); PLATELET COUNT 206 TH/MM3 (150-450); RED BLOOD COUNT 4.45 MIL/MM3 (4.00-5.30); RED CELL DISTRIBUTION WIDTH 14.5 % (11.6-17.2); WHITE BLOOD COUNT 12.3 TH/MM3 (4.0-11.0)
[2017-03-15 06:47] LABS: ALT (GPT) 15 U/L (10-53); ANION GAP 7 MEQ/L (5-15); AST (GOT) 25 U/L (15-37); BICARBONATE 25.9 MEQ/L (21.0-32.0); BLOOD UREA NITROGEN 8 MG/DL (7-18); CHLORIDE 106 MEQ/L (98-107); GLOMERULAR FILTRATION RATE 82 ML/MIN (>89); POTASSIUM 3.6 MEQ/L (3.5-5.1); SODIUM (NA) 139 MEQ/L (136-145)
[2017-03-15 06:49] LABS: ALKALINE PHOSPHATASE 80 U/L (45-117); TOTAL BILIRUBIN ADULT 0.4 MG/DL (0.2-1.0)
[2017-03-15] MEDS: SODIUM CHLOR 0.9% 1000 ML INJ 1,000 ML IV SCH (07:00)
[2017-03-15] MEDS: levETIRAcetam 500 MG TAB PO SCH (08:03)
[2017-03-15] MEDS: clonazePAM 1 MG TAB PO SCH (08:03)
[2017-03-15] MEDS: SODIUM CHLORIDE 0.9% FLUSH 10 ML FLUSH IV FLUSH SCH (08:05)
--- NOTE | 2017-03-15 08:39 | HHI.PR ---
Subjective Remarks looks and feels more comfortable today. chest pain has resolved. on oxygen via N/C @ 2 lit/min. d/w the RN. Objective Vitals Vital Signs Date Time Temp Pulse Resp B/P Pulse Ox O2 Delivery O2 Flow Rate FiO2 03/15/17 08:14 92 Nasal Cannula 2.00 03/15/17 07:58 98.1 76 18 126/73 92 03/15/17 07:12 97 Nasal Cannula 2.00 03/15/17 06:00 74 03/15/17 05:00 82 03/15/17 04:00 99.0 76 20 150/72 97 03/15/17 04:00 76 03/15/17 04:00 97 Nasal Cannula 2.00 03/15/17 03:00 75 03/15/17 02:00 60 03/15/17 01:00 73 03/15/17 00:00 99.1 76 20 134/72 97 03/15/17 00:00 79 03/15/17 00:00 97 Nasal Cannula 2.00 03/14/17 23:00 79 03/14/17 22:00 83 03/14/17 21:00 81 03/14/17 20:00 Nasal Cannula 4.00 03/14/17 20:00 85 03/14/17 20:00 97 Nasal Cannula 2.00 03/14/17 20:00 100.3 65 20 154/78 95 03/14/17 19:00 95 03/14/17 16:00 98 Nasal Cannula 2.00 03/14/17 15:00 99.6 97 20 159/72 98 03/14/17 15:00 98 Nasal Cannula 2.00 03/14/17 15:00 96 03/14/17 13:00 94 Nasal Cannula 2.00 03/14/17 12:00 92 Nasal Cannula 4.00 03/14/17 11:00 92 Nasal Cannula 4.00 03/14/17 11:00 98 03/14/17 11:00 98.6 101 18 132/99 91 I/O 03/14/17 03/14/17 03/14/17 03/15/17 03/15/17 03/15/17 07:00 15:00 23:00 07:00 15:00 23:00 Intake Total 1700 ml 4658 ml 516 ml Output Total 600 ml 200 ml Balance 1700 ml 4058 ml 316 ml Intake Oral 4480 ml 480 ml IV Total 1700 ml 178 ml 36 ml Output Urine Total 600 ml 200 ml # Bowel Movements 0 0 Result Diagram: 03/15/17 0554 03/15/17 0554 Imaging Last Impressions Chest X-Ray 03/14/17 0127 Signed Impressions: Service Date/Time: Tuesday, March 14, 2017 01:44 - CONCLUSION: No acute disease. Abhishek Mckinney Jr., MD Objective Remarks GENERAL: This is a well-nourished, well-developed patient, in no apparent distress. CARDIOVASCULAR: Regular rate and regular rhythm without murmurs, gallops, or rubs. RESPIRATORY: Clear to auscultation. Breath sounds equal bilaterally. No wheezes , rales, or rhonchi. GASTROINTESTINAL: Abdomen soft, non-tender, nondistended. Normal, active bowel sounds MUSCULOSKELETAL: Extremities without clubbing, cyanosis, or edema. NEURO: Alert & Oriented x4 to person, place, time, situation. Moves all ext x4 Procedures cardiac cath. Medications and IVs Current Medications Sodium Chloride (NS Flush) 2 ml UNSCH PRN IVF FLUSH AFTER USING IV ACCESS; Start 03/14/17 at 01:30; Stop 03/14/17 at 02:42; Status DC Nitroglycerin 0.4 mg 0.4 mg Q5M PRN SL CHEST PAIN Last administered on 01:52; Start 03/14/17 at 01:30 Sodium Chloride (NS 1000 ml Inj) 1,000 ml @ 100 mls/hr Q10H IV Last administered on 03/14/17 02:26; Start 03/14/17 at 01:30; Stop 03/14/17 at 02:49 ; Status DC Ondansetron HCl (Zofran Inj) 4 mg ONCE ONCE IV PUSH Last administered on 02:06; Start 03/14/17 at 02:15; Stop 03/14/17 at 02:16; Status DC Aspirin (Aspirin Chew) 162 mg ONCE ONCE CHEW Last administered on 03/14/17 02 :20; Start 03/14/17 at 02:15; Stop 03/14/17 at 02:16; Status DC Heparin Sodium (Porcine) (Heparin Inj) 7,000 units ONCE ONCE IV Last administered on 03/14/17 02:23; Start 03/14/17 at 02:15; Stop 03/14/17 at 02:18 ; Status DC Heparin Sodium (Porcine) (Heparin Inj) 5,000 units UNSCH PRN IV APTT LESS THAN 25; Start 03/14/17 at 08:15; Stop 03/14/17 at 08:15; Status DC Heparin Sodium (Porcine) 2500 units 2,500 units UNSCH PRN IV APTT 25 TO 39; Start 03/14/17 at 08:15; Stop 03/14/17 at 08:15; Status DC Heparin Sodium/ Dextrose (Heparin-D5W Inj) 250 ml @ 0 mls/hr TITRATE IV ; Start 03/14/17 at 02:15; Stop 03/14/17 at 02:39; Status DC Nitroglycerin 0.5 inch 0.5 inch ONCE ONCE TOPICAL Last administered on 02:22; Start 03/14/17 at 02:15; Stop 03/14/17 at 02:18; Status DC Sodium Chloride (NS 500 ml Inj) 500 ml @ 500 mls/hr BOLUS ONCE IV Last administered on 03/14/17 02:48; Start 03/14/17 at 02:15; Stop 03/14/17 at 03:14 ; Status DC Heparin Sodium (Porcine) (Heparin Inj) 5,000 units UNSCH PRN IV APTT LESS THAN 25; Start 03/14/17 at 08:45; Stop 03/14/17 at 10:15; Status DC Heparin Sodium (Porcine) 2500 units 2,500 units UNSCH PRN IV APTT 25 TO 39; Start 03/14/17 at 08:45; Stop 03/14/17 at 10:15; Status DC Heparin Sodium/ Dextrose (Heparin-D5W Inj) 250 ml @ 0 mls/hr TITRATE IV Last administered on 03/14/17 02:56; Start 03/14/17 at 02:45; Stop 03/14/17 at 10:15 ; Status DC Sodium Chloride (NS Flush) 2 ml BID IV FLUSH ; Start 03/14/17 at 09:00; Stop at 09:00; Status DC Sodium Chloride 2 ml 2 ml UNSCH PRN IVF FLUSH AFTER USING IV ACCESS; Start at 02:45; Stop 03/14/17 at 02:49; Status DC Sodium Chloride (NS 1000 ml Inj) 1,000 ml @ 100 mls/hr Q10H IV Last administered on 03/14/17 02:58; Start 03/14/17 at 02:37 Sodium Chloride (NS Flush) 2 ml UNSCH PRN IV FLUSH FLUSH AFTER USING IV ACCESS ; Start 03/14/17 at 02:45 Sodium Chloride (NS Flush) 2 ml BID IV FLUSH Last administered on 03/15/17 08: 05; Start 03/14/17 at 09:00 Ondansetron HCl (Zofran Inj) 4 mg Q6H PRN IVP NAUSEA OR VOMITING; Start at 02:45 Bisacodyl (Dulcolax Supp) 10 mg DAILY PRN RECTAL CONSTIPATION; Start 03/14/17 at 02:45 Acetaminophen (Tylenol) 650 mg Q6H PRN PO FEVER/PAIN SCALE 1 TO 2 Last administered on 03/15/17 04:31; Start 03/14/17 at 02:45 Acetaminophen/ Hydrocodone Bitart ([place] 5-325 Mg) 1 tab Q4H PRN PO PAIN SCALE 3 TO 5 Last administered on 03/15/17 00:43; Start 03/14/17 at 02:45 Morphine Sulfate (Morphine Inj) 2 mg Q3H PRN IV Pain 6-10 Last administered on 03/14/17 13:33; Start 03/14/17 at 02:45 Nitroglycerin (Nitroglycerin 2% Oint) 0.5 inch Q6HR PRN TOPICAL CHEST PAIN; Start 03/14/17 at 02:45; Stop 03/14/17 at 03:29; Status DC Clonazepam (KlonoPIN) 1 mg DAILY PO ; Start 03/14/17 at 09:00 Levetriacetam (Keppra) 500 mg BID PO Last administered on 03/15/17 08:03; Start 03/14/17 at 09:00 Metoprolol Succinate (Toprol Xl) 25 mg DAILYAC PO Last administered on 12:59; Start 03/14/17 at 08:00; Stop 03/14/17 at 17:43; Status DC Miscellaneous Information 1 Q361D XX ; Start 03/14/17 at 03:15 Chlorhexidine Gluconate (Chlorhexidine 2% Cloth) 3 pack Taper DAILY@04 TOP ; Start 03/14/17 at 04:00; Stop 03/10/18 at 03:59 Chlorhexidine Gluconate 3 pack 3 pack UNSCH PRN TOP HYGIENIC CARE; Start at 03:15 Nitroglycerin/ Dextrose (Nitroglycerin-Dextrose Inj) 250 ml @ 0 mls/hr TITRATE IV Last administered on 03/14/17 03:58; Start 03/14/17 at 03:30 Morphine Sulfate (Morphine Inj) 2 mg ONCE ONCE IV PUSH Last administered on 03:51; Start 03/14/17 at 03:30; Stop 03/14/17 at 03:31; Status DC Morphine Sulfate (Morphine Inj) 4 mg ONCE ONCE IV PUSH Last administered on 04:24; Start 03/14/17 at 04:30; Stop 03/14/17 at 04:31; Status DC Metoprolol Tartrate (Lopressor Inj) 5 mg ONCE ONCE IV PUSH Last administered on 03/14/17 04:38; Start 03/14/17 at 04:30; Stop 03/14/17 at 04:31; Status DC Hydromorphone HCl 0.5 mg 0.5 mg ONCE ONCE IV PUSH Last administered on 05:00; Start 03/14/17 at 05:00; Stop 03/14/17 at 05:01; Status DC Sodium Chloride 1,000 ml @ 100 mls/hr Q10H IV ; Start 03/14/17 at 07:57; Stop 03/14/17 at 10:18; Status DC Heparin Sodium/ Sodium Chloride (Heparin-NS/Pf Inj) 500 ml @ As Directed STK- MED ONCE .ROUTE ; Start 03/14/17 at 08:30; Stop 03/14/17 at 08:31; Status DC Verapamil HCl (Isoptin Inj) 5 mg STK-MED ONCE .ROUTE Last administered on 08:35; Start 03/14/17 at 08:35; Stop 03/14/17 at 08:36; Status DC Heparin Sodium (Porcine) (Heparin Inj) 10,000 units STK-MED ONCE .ROUTE Last administered on 03/14/17 08:35; Start 03/14/17 at 08:35; Stop 03/14/17 at 08:36 ; Status DC Midazolam HCl (Versed Inj) 2 mg STK-MED ONCE .ROUTE Last administered on 08:54; Start 03/14/17 at 08:54; Stop 03/14/17 at 08:55; Status DC Fentanyl Citrate (fentaNYL INJ) 100 mcg STK-MED ONCE .ROUTE Last administered on 03/14/17 08:54; Start 03/14/17 at 08:54; Stop 03/14/17 at 08:55; Status DC Verapamil HCl (Isoptin Inj) 5 mg STK-MED ONCE .ROUTE ; Start 03/14/17 at 09:33; Stop 03/14/17 at 09:34; Status DC Miscellaneous Information 1 1 ONCE ONCE XX ; Start 03/14/17 at 10:00; Stop at 10:14; Status DC Sodium Chloride (NS 1000 ml Inj) 1,000 ml @ 100 mls/hr Q10H IV ; Start at 11:00 Metoprolol Tartrate (Lopressor) 25 mg Q8HR PO Last administered on 03/15/17 04 :27; Start 03/14/17 at 17:45 Verapamil HCl (Isoptin) 40 mg Q8HR PO Last administered on 03/15/17 04:27; Start 03/14/17 at 17:45 A/P Assessment and Plan A/P - chest pain with elevated troponin- cardiology consult appreciated negative cardiac catheterization with normal coronary arteries echo with EF 75% and LVH continue BB - Verapamil was added. d-dimer negative. will do walk test before discharge. counselled on smoking cessation. -hypertension; on BB and Verapamil -seizure disorder; resumed home meds. Discharge Planning awaiting cardiology follow-up. Michael Leigh MD Mar 15, 2017 08:39
[2017-03-15] MEDS ORDERED: RESP: ALBUTEROL 1.25 MG/3 ML NEB (PRN) NEB (08:45)
--- NOTE | 2017-03-15 11:35 | PD.CARD.PN ---
Subjective Subjective Remarks Feels fine. No chest pain or dyspnea Objective Medications Current Medications Medications (Trade) Dose Ordered Sig/Gerry Route Start Time Stop Time Status Last Admin (Nitrostat Sl) 0.4 mg Q5M PRN SL 03/14/17 01:30 03/14/17 01:52 (NS Flush) 2 ml UNSCH PRN IV FLUSH 03/14/17 02:45 (NS Flush) 2 ml BID IV FLUSH 03/14/17 09:00 03/15/17 08:05 (Zofran Inj) 4 mg Q6H PRN IVP 03/14/17 02:45 (Dulcolax Supp) 10 mg DAILY PRN RECTAL 03/14/17 02:45 (Tylenol) 650 mg Q6H PRN PO 03/14/17 02:45 03/15/17 04:31 ([place] 5-325 Mg) 1 tab Q4H PRN PO 03/14/17 02:45 03/15/17 00:43 (Morphine Inj) 2 mg Q3H PRN IV 03/14/17 02:45 03/14/17 13:33 (KlonoPIN) 1 mg DAILY PO 03/14/17 09:00 (Keppra) 500 mg BID PO 03/14/17 09:00 03/15/17 08:03 Miscellaneous Information 1 Q361D XX 03/14/17 03:15 (Chlorhexidine 2% Cloth) 3 pack Taper DAILY@04 TOP 03/14/17 04:00 03/10/18 03:59 Chlorhexidine Gluconate 3 pack 3 pack UNSCH PRN TOP 03/14/17 03:15 Nitroglycerin/ Dextrose 250 ml @ 0 mls/hr TITRATE IV 03/14/17 03:30 03/14/17 03:58 (NS 1000 ml Inj) 1,000 ml @ 100 mls/hr Q10H IV 03/14/17 11:00 (Lopressor) 25 mg Q8HR PO 03/14/17 17:45 03/15/17 04:27 (Isoptin) 40 mg Q8HR PO 03/14/17 17:45 03/15/17 04:27 Vital Signs / I&O Vital Signs Date Time Temp Pulse Resp B/P Pulse Ox O2 Delivery O2 Flow Rate FiO2 03/15/17 08:14 92 Nasal Cannula 2.00 4/23/17 07:58 98.1 76 18 126/73 92 03/15/17 07:12 97 Nasal Cannula 2.00 03/15/17 07:00 80 03/15/17 06:00 74 03/15/17 05:00 82 03/15/17 04:00 99.0 76 20 150/72 97 03/15/17 04:00 76 03/15/17 04:00 97 Nasal Cannula 2.00 03/15/17 03:00 75 03/15/17 02:00 60 03/15/17 01:00 73 03/15/17 00:00 99.1 76 20 134/72 97 03/15/17 00:00 79 03/15/17 00:00 97 Nasal Cannula 2.00 03/14/17 23:00 79 03/14/17 22:00 83 03/14/17 21:00 81 03/14/17 20:00 Nasal Cannula 4.00 03/14/17 20:00 85 03/14/17 20:00 97 Nasal Cannula 2.00 03/14/17 20:00 100.3 65 20 154/78 95 03/14/17 19:00 95 03/14/17 16:00 98 Nasal Cannula 2.00 03/14/17 15:00 99.6 97 20 159/72 98 03/14/17 15:00 98 Nasal Cannula 2.00 03/14/17 15:00 96 03/14/17 13:00 94 Nasal Cannula 2.00 03/14/17 12:00 92 Nasal Cannula 4.00 I/O 03/14/17 03/14/17 03/14/17 03/15/17 03/15/17 03/15/17 07:00 15:00 23:00 07:00 15:00 23:00 Intake Total 1700 ml 4658 ml 516 ml Output Total 600 ml 200 ml Balance 1700 ml 4058 ml 316 ml Intake Oral 4480 ml 480 ml IV Total 1700 ml 178 ml 36 ml Output Urine Total 600 ml 200 ml # Bowel Movements 0 0 Physical Exam GENERAL: Well developed, well nourished. No acute distress. HEENT: Jugular venous pressure is normal. CHEST: Lungs clear to auscultation bilaterally. Unlabored respiratory effort. CARDIAC: Regular rate and rhythm 1/6 systolic murmur. ABDOMEN: Soft, nontender, no hepatosplenomegaly. Bowel sounds present. EXTREMITIES: No clubbing, cyanosis, or edema. Right groin OK Laboratory Laboratory Tests Test 03/14/17 03/14/17 03/15/17 12:46 15:09 05:54 Troponin I 2.55 NG/ML 2.55 NG/ML Activated Partial 28.0 SEC Thromboplast Time D-Dimer Quantitative (PE/DVT) 0.34 MG/L FEU White Blood Count 12.3 TH/MM3 Red Blood Count 4.45 MIL/MM3 Hemoglobin 11.7 GM/DL Hematocrit 35.6 % Mean Corpuscular Volume 80.0 FL Mean Corpuscular Hemoglobin 26.4 PG Mean Corpuscular Hemoglobin 33.0 % Concent Red Cell Distribution Width 14.5 % Platelet Count 206 TH/MM3 Mean Platelet Volume 10.3 FL Neutrophils (%) (Auto) 66.2 % Lymphocytes (%) (Auto) 19.2 % Monocytes (%) (Auto) 13.1 % Eosinophils (%) (Auto) 1.1 % Basophils (%) (Auto) 0.4 % Neutrophils # (Auto) 8.2 TH/MM3 Lymphocytes # (Auto) 2.4 TH/MM3 Monocytes # (Auto) 1.6 TH/MM3 Eosinophils # (Auto) 0.1 TH/MM3 Basophils # (Auto) 0.0 TH/MM3 CBC Comment DIFF FINAL Differential Comment Sodium Level 139 MEQ/L Potassium Level 3.6 MEQ/L Chloride Level 106 MEQ/L Carbon Dioxide Level 25.9 MEQ/L Anion Gap 7 MEQ/L Blood Urea Nitrogen 8 MG/DL Creatinine 0.85 MG/DL Estimat Glomerular Filtration 82 ML/MIN Rate Random Glucose 118 MG/DL Calcium Level 8.6 MG/DL Total Bilirubin 0.4 MG/DL Aspartate Amino Transf 25 U/L (AST/SGOT) Alanine Aminotransferase 15 U/L (ALT/SGPT) Alkaline Phosphatase 80 U/L Total Protein 6.7 GM/DL Albumin 2.9 GM/DL Imaging Last 48 hours Impressions Chest X-Ray 03/14/17 0127 Signed Impressions: Service Date/Time: Tuesday, March 14, 2017 01:44 - CONCLUSION: No acute disease. Abhishek Mckinney Jr., MD Assessment and Plan Problem List: (1) Elevated troponin Assessment and Plan: Doubt NSTEMI. (2) Hypertrophic cardiomyopathy Assessment and Plan: Best explanation for her clinical presentation. Continue Verapamil (change to 120mg SR daily), and betablocker (metoprolol succinate 50 mg daily). Assessment and Plan OK with me to [facility]. Alessandro So MD Mar 15, 2017 11:35
[2017-03-15] MEDS ORDERED: ACETAMINOPHEN 325 MG TAB ONE (12:11)
[2017-03-15] MEDS ORDERED: METO50TA11 PO (13:22)
[2017-03-15] MEDS ORDERED: VERA120C3 PO (13:22)
--- NOTE | 2017-03-15 13:25 | HHI.DCPOC ---
Discharge Care Plan Diagnosis: (1) Hypertrophic cardiomyopathy Your Health Problems Are: Chest Pain Shortness of Breath Goals to Promote Your Health * To prevent worsening of your condition and complications * To maintain your health at the optimal level Directions to Meet Your Goals Take your medications as prescribed Follow your dietary instruction Follow activity as directed Keep your appointments as scheduled Take your immunizations and boosters as scheduled If your symptoms worsen call your PCP, if no PCP go to Urgent Care Center or Emergency Room Smoking is Dangerous to Your Health. Avoid second hand smoke Call the 24-hour hour crisis hotline for domestic abuse at Michael Leigh MD Mar 15, 2017 13:25
--- NOTE | 2017-03-15 13:26 | HHI.DS ---
Discharge Summary Admission Date Mar 14, 2017 at 02:41 Discharge Date: Mar 15, 2017 Admitting Diagnosis NSTEMI (1) Elevated troponin ICD Code: R74.8 Diagnosis: Principal (2) Chest pain ICD Code: R07.9 Diagnosis: Principal Procedures cardiac cath. Brief History - From Admission patient is a 61 y/o female with history of hypertension,prediabetes and seizure disorder who presented to ER with chest pain. she says that the pain started yesterday when she was walking. pain was midsternal with no radiation. it was not associated with nausea or vomiting. although she had some diaphoresis. currently the pain is minimal to mild - improved with nitro- she doesn't recall any prior chest pain in the past. she was evaluated by cardiology and underwent cardiac catheterization. CBC/BMP: 03/15/17 0554 03/15/17 0554 Significant Findings Laboratory Tests Test 03/14/17 03/14/17 03/14/17 03/15/17 01:32 12:46 15:09 05:54 Mean Corpuscular Hemoglobin 25.9 PG 26.4 PG (27.0-34.0) (27.0-34.0) Monocytes (%) (Auto) 9.8 % (0.0-8.0) 13.1 % (0.0-8.0) Estimat Glomerular Filtration 82 ML/MIN (>89) 82 ML/MIN (>89) Rate Total Creatine Kinase 309 U/L (26-192) Creatine Kinase MB 23.2 NG/ML (0.5-3.6) Creatine Kinase MB % 7.5 % (0.0-4.0) Troponin I 4.47 NG/ML 2.55 NG/ML 2.55 NG/ML (0.02-0.05) (0.02-0.05) (0.02-0.05) White Blood Count 12.3 TH/MM3 (4.0-11.0) Neutrophils # (Auto) 8.2 TH/MM3 (1.8-7.7) Monocytes # (Auto) 1.6 TH/MM3 (0-0.9) Random Glucose 118 MG/DL (74-106) Albumin 2.9 GM/DL (3.4-5.0) Imaging Last Impressions Chest X-Ray 03/14/17 0127 Signed Impressions: Service Date/Time: Tuesday, March 14, 2017 01:44 - CONCLUSION: No acute disease. Abhishek Mckinney Jr., MD PE at Discharge GENERAL: This is a well-nourished, well-developed patient, in no apparent distress. CARDIOVASCULAR: Regular rate and regular rhythm without murmurs, gallops, or rubs. RESPIRATORY: Clear to auscultation. Breath sounds equal bilaterally. No wheezes , rales, or rhonchi. GASTROINTESTINAL: Abdomen soft, non-tender, nondistended. Normal, active bowel sounds MUSCULOSKELETAL: Extremities without clubbing, cyanosis, or edema. NEURO: Alert & Oriented x4 to person, place, time, situation. Moves all ext x4 Hospital Course - chest pain with elevated troponin- cardiology consult appreciated negative cardiac catheterization with normal coronary arteries echo with EF 75% and LVH continue BB - Verapamil was added. d-dimer negative. will do walk test before discharge. counselled on smoking cessation. -hypertension; on BB and Verapamil -seizure disorder; resumed home meds. Pt Condition on Discharge: Good Discharge Disposition: Discharge Home Discharge Time: <= 30 minutes Discharge Instructions DIET: Follow Instructions for: Heart Healthy Diet Activities you can perform: Regular-No Restrictions Follow up Referrals: Cardiology PCP Follow-up New Medications: Metoprolol Succinate ER 24 HR (Metoprolol Succinate ER 24 HR) 50 Mg Tab 50 MG PO DAILY hypertension #30 Ref 0 TAB Verapamil SR (Verapamil SR) 120 Mg Cap 120 MG PO DAILY hypertension #30 Ref 0 CAP Continued Medications: Aspirin DR (Aspirin EC) 81 Mg Tabdr 81 MG PO DAILY Ref 0 TAB Bismuth Subsalicylate Liq (Pepto-Bismol Liq) 262 Mg/15 Ml Susp 30 ML PO Do not exceed 8 doses (240 mL or 16 tbsp) in 24 hours. PRN INDIGESTION OR UPSET STOMACH #1 Ref 0 BOTTLE Clonazepam (Clonazepam) 1 Mg Tab 1 MG PO DAILY #60 Ref 0 TAB Levetiracetam (Keppra) 500 Mg Tab 500 MG PO BID Control Seizures #60 Ref 0 TAB Levetiracetam (Keppra) 500 Mg Tab 500 MG PO BID Control Seizures #60 Ref 0 TAB Discontinued Medications: Metoprolol Succinate ER 24 HR (Metoprolol Succinate ER 24 HR) 25 Mg Tab 25 MG PO DAILYAC #30 Ref 0 TAB Michael Leigh MD Mar 15, 2017 13:26
== END 2017-03-15 14:51 | disposition home or self-care (01) | DRG 281 ==
LOC: PHED 00:54 → PHEDA 02:41 → HCVR 10:13
PROVIDERS: ADMIT Internal Medicine; ATTEND Internal Medicine
PROC: 4A023N7 Measurement of Cardiac Sampling and Pressure, Left Heart, Percutaneous Approach (ICD-10-PCS; principal; 2017-03-14)
PROC: B211YZZ Fluoroscopy of Multiple Coronary Arteries using Other Contrast (ICD-10-PCS; 2017-03-14)
PROC: B215YZZ Fluoroscopy of Left Heart using Other Contrast (ICD-10-PCS; 2017-03-14)
DX: I21.4 Non-ST elevation (NSTEMI) myocardial infarction (principal); I42.2 Other hypertrophic cardiomyopathy; I10 Essential (primary) hypertension; F41.9 Anxiety disorder, unspecified; F17.210 Nicotine dependence, cigarettes, uncomplicated; G40.909 Epilepsy, unspecified, not intractable, without status epilepticus; R73.03 Prediabetes; Z86.73 Personal history of transient ischemic attack (TIA), and cerebral infarction without residual deficits
CPT/HCPCS: 71010; 80048; 80053; 82550; 82552; 83735; 84484; 85025; 85379; 85610; 85730; 93005; 93306; 93458; 94620; 96361; 96374; 96375; C1769; C1893; J1170; J1644; J2250; J2270; J2405; J3010; J7030; J7040; Q9967